=== PATIENT | male | born 1995 | race Caucasian/White ===

== ENCOUNTER → 2021-09-15 09:43 | Outpatient (CLI) | payer OTHER, MEDICAID, SELFPAY ==
[2021-09-15 10:40] VITALS: PULSE 86; PULSE 92
== END ==
PROVIDERS: PCP Family Medicine; Visit Provider Internal Medicine Pulmonary Disease
DX: R06.09 Other forms of dyspnea (principal)
CPT/HCPCS: 94060; 94618; 94640; 94727; 94729